=== PATIENT | female | born 1985 | race Caucasian/White ===

== ENCOUNTER 2017-03-06 13:30 | Outpatient (CLI) | payer MEDICAID ==
[~2017-03-06] VITALS: Ht 154.9 cm; Wt 122.0 kg
[2017-03-06 13:41] VITALS: BP 119/66; PULSE 104; RESP 20; Ht 154.9 cm; Wt 122.0 kg
--- NOTE | 2017-03-06 14:31 | RADRPT ---
PROCEDURE: OB ultrasound for biophysical profile CLINICAL INDICATION: Decreased movement TECHNIQUE: Multiple sonographic images of the pelvis were obtained. Transabdominal views of the g ravid uterus are available for review. The images were reviewed on a PACS workstation. COMPARISON: None FINDINGS: breathing movement = 2/2 tone = 2/2 motion = 2/2 NORRIS = 2/2 NORRIS = 15.9 cm Single live intrauterine with cardiac activity of 157 bpm. position is cephal ic. The placenta is fundal/right lateral. IMPRESSION: 1. Single live intrauterine gestation. 2. Biophysical profile = 8. 3. NORRIS = 15.9 cm. RPTAT: HH .Karlee De Leon MD, MD Date Time Electronically viewed and signed by .Karlee De Leon MD, on 03/06/2017 14:31 .G/
--- NOTE | 2017-03-06 14:56 | TRIAGE ---
OB Triage Datetime Report Generated by CPN: 03/06/2017 14:55 Datetime: 03/06/2017 13:50 Maternal Assessment Level of Consciousness: Fully Conscious DTR's/Clonus: DTRs 2+ Headache: Denies Blurred Vision: No Nausea/Vomiting: Denies RUQ Epigastric Pain: Denies Facial Edema: None Labor Evaluation Frequency: NONE Pattern: Normal: <= 5 Contractions in 10 Minutes Heart Rate FHR Baseline Rate: 145 Monitor Mode: External US FHR Baseline Changes: No Baseline Change Variability: Moderate 6-25 bpm Accelerations: 15X15 Decelerations: None Category: Category I Pain Assessment Pain Scale: 0 Pain Presence: None/Denies Pain Goal: 0 Vaginal Exam Membrane Status: Intact Datetime: 03/06/2017 13:46 Time of Arrival: 03/06/2017 13:30 EGA: 39.2 Arrived By: Ambulatory Arrived From: Home Chief Complaint: DECREASED MOVEMENT Movement: Decreased Contractions: Denies/Absent Rupture of Membranes: Denies Vaginal Bleeding: None Vaginal Discharge: Denies Recent Sexual Intercouse: Denies Abdominal Trauma: Not Applicable Patient Complaints: Other Provider Notified: ANA Initial Plan: FRANCISCA FLYNN
--- NOTE | 2017-03-06 18:19 | QN ---
Documentation Comment iup 39 dfm vss exam wnl us wnl a/p iup 39 dfm resolved dc home JOHANNA CORDOVA MD Mar 06, 2017 18:19
== END 2017-03-06 14:50 | disposition home or self-care (01) ==
LOC: OBT 13:30 → L-D 13:30 → OBT 14:50
PROVIDERS: ATTEND Specialist
DX: O36.8130 Decreased fetal movements, third trimester, not applicable or unspecified (principal); Z3A.39 39 weeks gestation of pregnancy
CPT/HCPCS: 76818; Z7500; G0463

== ENCOUNTER 2017-03-06 23:30 | Inpatient (IN) | payer MEDICAID ==
[~2017-03-06] VITALS: Ht 154.9 cm; Wt 120.5 kg
[2017-03-06 23:52] VITALS: Ht 154.9 cm; Wt 120.5 kg
[2017-03-07] MEDS ORDERED: METHYLERGONOVINE 0.2 MG INJ IM PRN
[2017-03-07] MEDS ORDERED: OXYTOCIN 30 UNITS/LR 500 ML IV SCH ×3
[2017-03-07] MEDS ORDERED: OXYCODONE/ASPIRIN (4.88/325) TAB PO PRN
[2017-03-07] MEDS ORDERED: LACTATED RINGER'S 1,000 ML IV PRN
[2017-03-07] MEDS ORDERED: IBUPROFEN 600 MG TAB PO PRN
[2017-03-07] MEDS ORDERED: LIDOCAINE 1% (MPF) 30 ML INJ INJ PRN
[2017-03-07] MEDS ORDERED: BUTORPHANOL 2 MG INJ IV PRN
--- NOTE | 2017-03-07 00:15 | TRIAGE ---
OB Triage Datetime Report Generated by CPN: 03/07/2017 00:15 Datetime: 03/07/2017 00:00 Frequency: 3-4 Monitor Mode: External Duration (sec)2399: 50-70 Pattern: Normal: <= 5 Contractions in 10 Minutes FHR Baseline Rate: 155 Monitor Mode: External US FHR Baseline Changes: No Baseline Change Variability: Moderate 6-25 bpm Datetime: 03/06/2017 23:42 Dilatation (cms): 1.0 Effacement (%): 60 Station: -2 Exam By: AMBER FROST Membrane Status: Ruptured Membranes Rupture Method: Spontaneous Amniotic Fluid Color: Bloody Amniotic Fluid Amount: Moderate Amniotic Fluid Odor: None Vaginal Bleeding: Scant Pool: Positive Cervix, Consistency: Soft Cervix, Position: Posterior Presentation 'A': Cephalic Datetime: 03/06/2017 23:30 Stage of : OB Triage Assessment Type: Triage Level of Consciousness: Fully Conscious Headache: Denies Blurred Vision: No Respiratory Effort: Unlabored; Regular Rhythm; Equal Expansion Nausea/Vomiting: Denies RUQ Epigastric Pain: Denies Facial Edema: None History of Falling: (0) No Secondary Diagnosis: (0) No Ambulatory Aid: (0) Bedrest/Nurse Assist IV Therapy: (0) No Gait: (0) Normal/Bedrest/Immobile Mental Status: (0) Oriented to Own Ability Fall Score: 0 Fall Risk Score Definition: No Risk: No action required Datetime: 03/06/2017 23:26 Time of Arrival: 03/07/2017 23:26 EGA: 39.3 Arrived By: Ambulatory Arrived From: Home Chief Complaint: SROM AT 2245 Movement: Present Contractions: Irregular Rupture of Membranes: Ruptured Vaginal Bleeding: Scant Vaginal Discharge: Denies Recent Sexual Intercouse: Denies Abdominal Trauma: Not Applicable Patient Complaints: Other Time Provider Notified: 03/07/2017 23:44 Provider Notified: ERICA Initial Plan: EFM,SVE,ROM+,SPECULUM Datetime: 03/06/2017 13:46 EGA: 39.2 Datetime: 03/06/2017 13:45 Membranes Ruptured Date/Time: 03/06/2017 22:45
[2017-03-07] MEDS: LACTATED RINGER'S 1,000 ML IV SCH ×3 (00:29→12:07)
[2017-03-07 00:51] LABS: BASOPHILS % 0.2 % (0.0-2.0); EOSINOPHILS # 0.1 10^3/ul (0.0-0.5); EOSINOPHILS % 1.1 % (0.0-7.0); HEMATOCRIT 36.6 % (37.0-47.0); HEMOGLOBIN 12.3 g/dl (12.0-16.0); LYMPHOCYTES # 2.5 10^3/ul (0.8-2.9); LYMPHOCYTES % 23.4 % (15.0-51.0); MEAN CORPUSCULAR HEMOGLOBIN 28.5 pg (29.0-33.0); MEAN CORPUSCULAR HGB CONC 33.6 g/dl (32.0-37.0); MEAN CORPUSCULAR VOLUME 84.9 fl (82.0-101.0); MEAN PLATELET VOLUME 8.9 fl (7.4-10.4); MONOCYTE # 0.6 10^3/ul (0.3-0.9); MONOCYTES % 5.2 % (0.0-11.0); NEUTROPHIL # 7.4 10^3/ul (1.6-7.5); NEUTROPHILS % 69.6 % (39.0-77.0); PLATELET COUNT 436 10^3/UL (140-415); RED BLOOD COUNT 4.31 10^6/ul (4.20-5.40); RED CELL DISTRIBUTION WIDTH 13.8 % (11.5-14.5); WHITE BLOOD COUNT 10.6 10^3/ul (4.8-10.8)
[2017-03-07 01:08] LABS: INR 0.83; PROTIME 11.4 Sec (12.2-14.2); PT RATIO 0.9
[2017-03-07 01:09] LABS: PARTIAL THROMBOPLASTIN TIME 23.8 Sec (25.0-35.0)
--- NOTE | 2017-03-07 09:47 | HP ---
Date/Time of Note Date/Time of Note DATE: 03/07/17 TIME: 09:44 OB - History Hx of Present Free Text/Dictation 31 YO with IUP at 39.4 weeks admitted in labor. she is 9.5 cm now EFW 8.5 LB and pelvic is adequate. + SROM and clear Care: Good Care Ultrasounds: Normal mid trimester US Obstetrical Complications: None Medical Complications: Other (Obesity ) Past Family/Social History * Past Medical, Surgical, Family and Obstetric Histories reviewed from chart. OB Admission Exam Physical Exam HEENT: WNL Heart: Rhythm Normal Lungs: Clear, Equal Abdomen: WNL Extremities: Normal Reflexes: Normal Last 72 hours Lab Results CBC & BMP 03/07/17 00:25 OB Assessment/Plan Reason for admission: active labor Plan: Expectant Management JONATHAN MALDONADO MD Mar 07, 2017 09:47
[2017-03-07] MEDS ORDERED: MAGNESIUM HYDROXIDE 30ML CUP PO PRN (10:00)
[2017-03-07] MEDS ORDERED: DIPHENHYDRAMINE 50 MG INJ IV PRN (10:00)
[2017-03-07] MEDS ORDERED: NA PHOSPHATE/BIPHOS 133 ML ENEMA PR PRN (10:00)
[2017-03-07] MEDS ORDERED: SENNA/DOCUSATE NA (8.6MG/50MG) TAB PO PRN (10:00)
[2017-03-07] MEDS ORDERED: OXYTOCIN 30 UNITS/LR 500 ML IV PRN ×2 (10:00)
[2017-03-07] MEDS ORDERED: LANOLIN 7 GM TUBE TOP PRN (10:00)
[2017-03-07] MEDS ORDERED: ONDANSETRON 4 MG INJ IV PRN (10:00)
[2017-03-07] MEDS ORDERED: ONDANSETRON 4 MG TAB PO PRN (10:00)
[2017-03-07] MEDS ORDERED: DIBUCAINE 1% 30 GM OINT TOP PRN (10:00)
[2017-03-07] MEDS ORDERED: HYDROCODONE/APAP (5/325) TAB PO PRN ×2 (10:00)
[2017-03-07] MEDS ORDERED: DIPHENHYDRAMINE 25 MG CAP PO PRN (10:00)
[2017-03-07] MEDS ORDERED: MISOPROSTOL 200 MCG TAB PR PRN ×2 (10:00)
[2017-03-07] MEDS ORDERED: CARBOPROST 250 MCG INJ IM PRN ×2 (10:00)
[2017-03-07] MEDS: LACTATED RINGER'S 1,000 ML IV* SCH ×2 (11:05→12:05)
[2017-03-07] MEDS ORDERED: FENTAnyl 2MCG/ML-ROPIV 0.2% 100 ML ONE (11:40)
[2017-03-07] MEDS ORDERED: NALOXONE (0.4 MG/ML) INJ IV PRN (12:30)
[2017-03-07] MEDS ORDERED: FENTAnyl 2MCG/ML-ROPIV 0.2% 100 ML BAG EPI SCH (12:30)
--- NOTE | 2017-03-07 15:05 | LDN ---
Date/Time of Note Date/Time of Note DATE: 03/07/17 TIME: 15:02 Delivery Summary Risks and benefits and indications and alternatives of VAVD discussed with patient and informed consent obtained. Indication for VAVD: Maternal exhaustion Position of fetus: + 4 at Direct OA Technique: Suction cup was applied to flexion point in normal fashion. I applied suction only with contractions. I pulled only with contractions. # of pupoffs: none Total Vacuum time: less than one minute After the vertex was delivered the suction removed and she was able to deliver the rest of baby easily. placenta delivered spontaneously and intact. EBL: 300 ml Lacerations: first degree vaginal was repaired in normal fashion with 2-0 Chromic 3 cm aborting myoma was noted Assisted Vaginal Delivery: Vacuum Placenta Delivered: Spontaneously Meconium: none Episiotomy: No Anesthesia type: Epidural Sponge & Needle done & correct: Yes All needle counts correct: Yes Any foreign bodies felt in the: No Problems: Infant Delivery Information Sex Sex: male Apgars 1 Minute: 8 5 Minute: 9 Suctioning Nose & mouth suctioned at lynn: No Delee suction performed: No Umbilical Cord Umbilical cord with: 3 Vessels Cord presentations: nuchal cord Nuchal cord present X: 1 Cord Blood was obtained: Yes Mother & Baby Disposition Disposition Mom & Baby to Maternity; Good: Yes JONATHAN MALDONADO MD Mar 07, 2017 15:05
[2017-03-07 17:00] VITALS: BP 99/54; PULSE 103; RESP 18
[2017-03-07] MEDS: IBUPROFEN 600 MG TAB PO SCH ×3 (17:00→23:42)
[2017-03-07] MEDS: WITCH HAZEL/GLYCERIN PAD PR PRN (18:21)
[2017-03-07] MEDS: BENZOCAINE 20% 56 ML SPRAY TOP PRN (18:21)
[2017-03-07 20:00] VITALS: BP 97/55; PULSE 105; RESP 19
[2017-03-07] MEDS: SENNA/DOCUSATE NA (8.6MG/50MG) TAB PO SCH (21:36)
[2017-03-08 00:15] VITALS: BP 105/64; PULSE 97; RESP 18
[2017-03-08] MEDS: LACTATED RINGER'S 1,000 ML IV* SCH ×2 (01:47→09:47)
[2017-03-08] MEDS: LACTATED RINGER'S 1,000 ML IV SCH ×2 (01:53→07:47)
[2017-03-08 04:00] VITALS: BP 106/54; PULSE 95; RESP 19
[2017-03-08] MEDS: IBUPROFEN 600 MG TAB PO SCH ×3 (05:38→17:35)
[2017-03-08 08:00] VITALS: BP 97/59; PULSE 100; RESP 17
--- NOTE | 2017-03-08 08:01 | DS ---
Date/Time of Note Date/Time of Note DATE: 03/08/17 TIME: 07:59 Obstetrical Discharge Record Final Diagnosis Final Diagnosis: Term delivered Vaginal Delivery Obstetrical Delivery: Vacuum Extraction Other Delivery information care was uneventful. she remained afebrile and ambulating well. denies pain or heavy lochia. Complications Augmentation: Yes Rupture of Membranes: No Condition on Discharge Physical Assessment Voiding: Yes Bowel Movement: Yes Breast: Soft, non-tender, Filling Fundus: Firm Abdomen and Incision: obese, soft, NT. firm Fundus. difficult exam due to obesity Calf Tenderness: No Patient Condition: Good JONATHAN MALDONADO MD Mar 08, 2017 08:01
[2017-03-08] MEDS: SENNA/DOCUSATE NA (8.6MG/50MG) TAB PO SCH ×2 (11:45→21:45)
[2017-03-08 13:59] LABS: BASOPHILS % 0.3 % (0.0-2.0); EOSINOPHILS # 0.1 10^3/ul (0.0-0.5); EOSINOPHILS % 0.4 % (0.0-7.0); HEMOGLOBIN 10.5 g/dl (12.0-16.0); LYMPHOCYTES # 2.8 10^3/ul (0.8-2.9); LYMPHOCYTES % 20.3 % (15.0-51.0); MEAN CORPUSCULAR HEMOGLOBIN 28.2 pg (29.0-33.0); MEAN CORPUSCULAR HGB CONC 32.8 g/dl (32.0-37.0); MEAN PLATELET VOLUME 8.8 fl (7.4-10.4); MONOCYTE # 0.7 10^3/ul (0.3-0.9); MONOCYTES % 4.9 % (0.0-11.0); NEUTROPHIL # 10.3 10^3/ul (1.6-7.5); NEUTROPHILS % 73.7 % (39.0-77.0); PLATELET COUNT 390 10^3/UL (140-415); RED BLOOD COUNT 3.72 10^6/ul (4.20-5.40); RED CELL DISTRIBUTION WIDTH 14.1 % (11.5-14.5); WHITE BLOOD COUNT 13.9 10^3/ul (4.8-10.8)
[2017-03-08] MEDS: WITCH HAZEL/GLYCERIN PAD PR PRN (14:35)
[2017-03-08] MEDS: BENZOCAINE 20% 56 ML SPRAY TOP PRN (14:35)
[2017-03-08 16:00] VITALS: BP 96/57; PULSE 89; RESP 16
[2017-03-08] MEDS ORDERED: INFLUENZA VIRUS VACCINE 0.5 ML SYG IM* ONE (20:00)
[2017-03-09] MEDS: IBUPROFEN 600 MG TAB PO SCH ×3 (00:29→11:52)
[2017-03-09 03:50] VITALS: BP 102/88; PULSE 88; RESP 18
[2017-03-09] MEDS: WITCH HAZEL/GLYCERIN PAD PR PRN (06:04)
[2017-03-09 08:00] VITALS: BP 122/58; PULSE 104; RESP 17
[2017-03-09] MEDS ORDERED: MEASLES,MUMPS,RUBELLA VACCINE INJ SC* ONE (09:00)
[2017-03-09] MEDS ORDERED: DIPHTH/TET/ACEL PERTUSS (ADULT) 0.5 ML VIAL IM* ONE (09:00)
[2017-03-09] MEDS ORDERED: VARICELLA VACCINE LIVE/PF 1,350 UNIT/0.5 ML ML SC* ONE (09:00)
[2017-03-09] MEDS: SENNA/DOCUSATE NA (8.6MG/50MG) TAB PO SCH (11:52)
== END 2017-03-09 12:50 | disposition home or self-care (01) | DRG 775 ==
LOC: OBT 23:30 → L-D 23:30 → OBT 23:47 → L-D 23:47 → PP1 03-07 17:07
PROVIDERS: ADMIT Specialist; ATTEND Specialist
PROC: 10D07Z6 Extraction of Products of Conception, Vacuum, Via Natural or Artificial Opening (ICD-10-PCS; principal; 2017-03-07)
PROC: 0UQGXZZ Repair Vagina, External Approach (ICD-10-PCS; 2017-03-07)
PROC: 3E033VJ Introduction of Other Hormone into Peripheral Vein, Percutaneous Approach (ICD-10-PCS; 2017-03-07)
DX: O99.214 Obesity complicating childbirth (principal); Z68.43 Body mass index [BMI] 50.0-59.9, adult; E66.9 Obesity, unspecified; O69.81X0 Labor and delivery complicated by cord around neck, without compression, not applicable or unspecified; O71.4 Obstetric high vaginal laceration alone; Z3A.39 39 weeks gestation of pregnancy; Z37.0 Single live birth
CPT/HCPCS: 62319; 84112; 85025; 85610; 85730; 86592; 86900; 86901; 87340; 90686; 90715; 90716; 99464; G0463; J0595; J2590; J3010; J7120

== ENCOUNTER 2017-08-26 06:52 | Inpatient (IN) | END 2017-08-30 13:29 | disposition home or self-care (01) | DRG 417 ==